=== PATIENT | female | born 1970 | race Caucasian/White ===

== ENCOUNTER → 2017-08-26 | Outpatient (CLI) | payer OTHER ==
[2016-06-14 17:57] VITALS: BP 181/98
[~2017-08-26] MED LIST: AMLO10TA2 PO; CYCL10TA2 PO; HYDR12.58 PO; IOHEXOL 300 MG/ML 100ML VIAL. IV ONE; LOSA1TAB25 PO; META-21 PO
--- NOTE | 2017-08-26 10:09 | KCIC ---
CT HEAD WO/W CONTRAST dated 08/26/2017 9:30 AM Indication: Chronic headache, migraine, history of renal cancer. Comparison: No comparison is available. Technique: Contiguous axial imaging the head was performed with and without the administration of 80 cc Omnipaque 300. One or more of the following individualized dose reduction techniques were utilized for this examination: 1. Automated exposure control 2. Adjustment of the mA and/or kV according to patient size 3. Use of iterative reconstruction technique Findings: Ventricles and sulci within normal limits for age. No midline shift or mass effect. Brain parenchyma is of normal attenuation. No hemorrhage or extra axial collection. Posterior fossa and brainstem unremarkable. Postcontrast imaging shows no abnormal enhancement or mass. Visualized paranasal sinuses and mastoid air cells are clear. No apparent calvarial abnormality. IMPRESSION: 1. No acute intracranial abnormality. No evidence of intracranial hemorrhage or mass. Electronically signed by: Arjun Jefferson MD (08/26/2017 10:06 AM) [id number]
== END | disposition home or self-care (01) ==
LOC: KCIC CT 08:50
PROVIDERS: ATTEND Nurse Practitioner Adult Health
DX: G43.719 Chronic migraine without aura, intractable, without status migrainosus (principal); I10 Essential (primary) hypertension; Z85.528 Personal history of other malignant neoplasm of kidney
CPT/HCPCS: 70470; 82565; Q9967

== ENCOUNTER → 2018-02-26 | Outpatient (CLI) | payer OTHER | END | disposition home or self-care (01) | LOC: KCIC US 12:03 | DX: N28.81 Hypertrophy of kidney (principal); Z90.5 Acquired absence of kidney; Z85.528 Personal history of other malignant neoplasm of kidney | CPT/HCPCS: 76775 ==